=== PATIENT | female | born 1980 | race Hispanic/Latino ===

== ENCOUNTER 2020-02-21 21:52 | Inpatient (IN) | payer OTHER ==
[~2020-02-21] VITALS: Ht 162.6 cm; Wt 105.0 kg
[2020-02-21] MEDS ORDERED: CEFEPIME 2 GM/NS 0.9% 100 ML 100 ML IV ONE (22:45)
[2020-02-21] MEDS ORDERED: ACETAMINOPHEN 325 MG TAB ONE (22:45)
[2020-02-21] MEDS ORDERED: ACETAMINOPHEN 325 MG TAB PO ONE (22:45)
[2020-02-21 23:04] LABS: BASOPHILS % 0.2 % (0.0-1.0); EOSINOPHILS # (AUTO) 0.1 (0.0-0.4); HEMATOCRIT 46.7 % (34.2-44.1); HEMOGLOBIN 15.4 g/dL (12.0-16.0); LYMPHOCYTES # (AUTO) 0.9 (1.0-3.2); LYMPHOCYTES % 18.1 % (18.0-39.1); MEAN CORPUSCULAR HEMOGLOBIN 24.4 pg (28-32); MEAN CORPUSCULAR VOLUME 74.1 fL (81-99); MONOCYTES # (AUTO) 0.3 (0.2-0.8); MONOCYTES % 5.5 % (4.4-11.3); NEUTROPHILS # (AUTO) 3.7 (2.1-6.9); NEUTROPHILS % 73.6 % (38.7-80.0); PLATELET COUNT 141 x10e3/uL (140-360); RED CELL DISTRIBUTION WIDTH 13.8 % (11.7-14.4)
[2020-02-21 23:22] LABS: ALANINE AMINOTRANSFERASE 43 IU/L (0-55); ALBUMIN 3.9 g/dL (3.5-5.0); ALBUMIN/GLOBULIN RATIO 0.9 (0.8-2.0); ALKALINE PHOSPHATASE 154 IU/L (40-150); ANION GAP 17.9 mmol/L (8-16); BLOOD UREA NITROGEN 8 mg/dL (7-26); BUN/CREATININE RATIO 10 (6-25); CALCIUM 10.5 mg/dL (8.4-10.2); CARBON DIOXIDE 27 mmol/L (22-29); CHLORIDE 97 mmol/L (98-107); CREATINE KINASE 31 IU/L (29-168); EST GLOMERULAR FILTRATION RATE > 60 ML/MIN (60-); GLUCOSE 351 mg/dL (74-118); POTASSIUM 3.9 mmol/L (3.5-5.1); SODIUM 138 mmol/L (136-145)
--- NOTE | 2020-02-21 23:29 | Emergency Department Note ---
History of Present Illnes History of Present Illness Chief Complaint: COVID PUI History of Present Illness This is a 39 year old female FOR TWO DAYS PATIENT HAS BEEN SHORTNESS OF BREATH AND FATIGUE, DENIES CHEST PAIN. PATIENT WORKS AT A [employer] AND HIGH RISK FOR COVID. 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 Any updates have been documented here. Past Medical History Recent Fever: Yes Clinical Suspicion of Infectio: Yes New/Unexplained Change in Ment: Yes Past Medical History: Hypertension, Diabetes Other Medical History: AFIB Other Surgery: UTERINE CANCER GALLBLADDER REMOVAL Social History Smoking Cessation: Never Smoker Counseling Performed: No Alcohol Use: None Any Illegal Drug Use: No TB Exposure/Symptoms: No Physically hurt or threatened: No Other Last Tetanus: UNKNOWN Any Pre-Existing Lines (PICC,: No Is patient up to date on immun: Yes Last Flu: DENIES Last Pneumovax: UTD Review of Systems Review of Systems Constitutional: Reports as per HPI EENTM: Reports no symptoms Cardiovascular: Reports no symptoms Respiratory: Reports as per HPI Gastrointestinal: Reports no symptoms Genitourinary: Reports no symptoms Musculoskeletal: Reports no symptoms Integumentary: Reports no symptoms Neurological: Reports no symptoms Psychological: Reports no symptoms Endocrine: Reports no symptoms Hematological/Lymphatic: Reports no symptoms Physical Exam Related Data Allergies: Coded Allergies: No Known Allergies (Unverified , 02/21/20) Triage Vital Signs Vital Signs Date Time Temp Pulse Resp B/P (MAP) Pulse Ox O2 Delivery O2 Flow Rate FiO2 02/21/20 22:21 102.5 116 18 191/105 96 Vital signs reviewed: Yes Physical Exam CONSTITUTIONAL Constitutional: Present well-developed, Present well-nourished HENT HENT: Present normocephalic, Present atraumatic, Present oropharynx clear/moist, Present nose normal HENT L/R: Present left ext ear normal, Present right ext ear normal EYES Eyes: Reports PERRL, Reports conjunctivae normal NECK Neck: Present ROM normal PULMONARY Pulmonary: Present effort normal, Present breath sounds normal CARDIOVASCULAR Cardiovascular: Present regular rhythm, Present heart sounds normal, Present capillary refill normal, Present tachycardia (115) GASTROINTESTINAL Abdominal: Present soft, Present nontender, Present bowel sounds normal GENITOURINARY Genitourinary: Present exam deferred SKIN Skin: Present warm, Present dry MUSCULOSKELETAL Musculoskeletal: Present ROM normal NEUROLOGICAL Neurological: Present alert, Present oriented x 3, Present no gross motor or sensory deficits PSYCHOLOGICAL Psychological: Present mood/affect normal, Present judgement normal Results Laboratory Result Diagram: 02/21/202229 Laboratory Laboratory Tests Test 02/21/20 22:54 02/21/20 22:30 Urine Color Yellow (YELLOW) Urine Clarity Clear (CLEAR) Urine pH 7 (5 - 7) Urine Specific [place] 1.025 (1.010-1.025) Urine Protein Negative (NEGATIVE) Urine Glucose (UA) 2+ (NEGATIVE) Urine Ketones Negative (NEGATIVE) Urine Blood Trace (NEGATIVE) Urine Nitrite Negative (NEGATIVE) Urine Bilirubin Negative (NEGATIVE) Urine Urobilinogen 0.2 mg/dL (0.2 - 1) Urine Leukocyte Esterase Negative (NEGATIVE) Urine RBC 0-5 /HPF (0-5) Urine WBC 0-5 /HPF (0-5) Urine Epithelial Cells Few /LPF (NONE) Urine Bacteria Rare /HPF (NONE) White Blood Count 5.08 x10e3/uL (4.8-10.8) Red Blood Count 6.30 x10e6/uL (3.6-5.1) Hemoglobin 15.4 g/dL (12.0-16.0) Hematocrit 46.7 % (34.2-44.1) Mean Corpuscular Volume 74.1 fL (81-99) Mean Corpuscular Hemoglobin 24.4 pg (28-32) Mean Corpuscular Hemoglobin Concent 33.0 g/dL (31-35) Red Cell Distribution Width 13.8 % (11.7-14.4) Platelet Count 141 x10e3/uL (140-360) Neutrophils (%) (Auto) 73.6 % (38.7-80.0) Lymphocytes (%) (Auto) 18.1 % (18.0-39.1) Monocytes (%) (Auto) 5.5 % (4.4-11.3) Eosinophils (%) (Auto) 2.0 % (0.0-6.0) Basophils (%) (Auto) 0.2 % (0.0-1.0) Neutrophils # (Auto) 3.7 (2.1-6.9) Lymphocytes # (Auto) 0.9 (1.0-3.2) Monocytes # (Auto) 0.3 (0.2-0.8) Eosinophils # (Auto) 0.1 (0.0-0.4) Basophils # (Auto) 0.0 (0.0-0.1) Absolute Immature Granulocyte (auto 0.03 x10e3/uL (0-0.1) Sodium Level 138 mmol/L (136-145) Potassium Level 3.9 mmol/L (3.5-5.1) Chloride Level 97 mmol/L (98-107) Carbon Dioxide Level 27 mmol/L (22-29) Anion Gap 17.9 mmol/L (8-16) Blood Urea Nitrogen 8 mg/dL (7-26) Creatinine 0.80 mg/dL (0.57-1.11) Estimat Glomerular Filtration Rate > 60 ML/MIN (60-) BUN/Creatinine Ratio 10 (6-25) Glucose Level 351 mg/dL (74-118) Lactic Acid Level 1.2 mmol/L (0.5-2.0) Calcium Level 10.5 mg/dL (8.4-10.2) Total Bilirubin 0.6 mg/dL (0.2-1.2) Aspartate Amino Transf (AST/SGOT) 32 IU/L (5-34) Alanine Aminotransferase (ALT/SGPT) 43 IU/L (0-55) Alkaline Phosphatase 154 IU/L (40-150) Creatine Kinase 31 IU/L (29-168) Creatine Kinase MB 0.60 ng/mL (0-5.0) Troponin I < 0.001 ng/mL (0-0.300) Total Protein 8.3 g/dL (6.5-8.1) Albumin 3.9 g/dL (3.5-5.0) Globulin 4.4 g/dL (2.3-3.5) Albumin/Globulin Ratio 0.9 (0.8-2.0) Laboratory Tests Test 02/21/20 22:54 02/21/20 22:30 White Blood Count 5.08 x10e3/uL (4.8-10.8) Red Blood Count 6.30 x10e6/uL (3.6-5.1) Hemoglobin 15.4 g/dL (12.0-16.0) Hematocrit 46.7 % (34.2-44.1) Mean Corpuscular Volume 74.1 fL (81-99) Mean Corpuscular Hemoglobin 24.4 pg (28-32) Mean Corpuscular Hemoglobin Concent 33.0 g/dL (31-35) Red Cell Distribution Width 13.8 % (11.7-14.4) Platelet Count 141 x10e3/uL (140-360) Neutrophils (%) (Auto) 73.6 % (38.7-80.0) Lymphocytes (%) (Auto) 18.1 % (18.0-39.1) Monocytes (%) (Auto) 5.5 % (4.4-11.3) Eosinophils (%) (Auto) 2.0 % (0.0-6.0) Basophils (%) (Auto) 0.2 % (0.0-1.0) Neutrophils # (Auto) 3.7 (2.1-6.9) Lymphocytes # (Auto) 0.9 (1.0-3.2) Monocytes # (Auto) 0.3 (0.2-0.8) Eosinophils # (Auto) 0.1 (0.0-0.4) Basophils # (Auto) 0.0 (0.0-0.1) Absolute Immature Granulocyte (auto 0.03 x10e3/uL (0-0.1) Lactic Acid Level 1.2 mmol/L (0.5-2.0) Lab results reviewed: Yes Imaging Imaging results reviewed: Yes Impressions Procedure: [id number] DX/CHEST SINGLE (PORTABLE) Exam Date: 02/21/20 Exam Time: 2330 REPORT STATUS: Signed Examination: Single AP view of the chest. COMPARISON: None. INDICATION: Body aches, shortness of breath IMPRESSION: 1. Lines and Tubes: None 2. Lungs are well inflated. Linear opacity in the left mid lung likely represent subsegmental atelectasis. Lungs are otherwise grossly clear. No consolidation or effusion. 3. Cardiomediastinal silhouette is normal. Pulmonary vasculature is normal. 4. No acute bony abnormalities. Signed by: Dr. Michell Mendez M.D. on 02/21/2020 11:49 PM Dictated By: MICHELL MENDEZ MD [id number] Procedures 12 Lead ECG Interpretation ECG Interpretation : ECG: ECG 1 Manager Convention: Interpreted by ED physician Date: Feb 22, 2020 Time: 00:01 Rhythm: sinus tachycardia Rate: tachycardia BPM: 107 Conduction: left bundle branch block Clinical Impression: abnormal ECG Assessment & Plan Medical Decision Making MDM PT WITH FEVER, CHILLS, BODY ACHES, SOB. CBC, CMP, CXR, BLOOD CULTURE, UA, COVID 19 URINE CULTURE, LACTIC ACID ORDERED TO EVAL FOR SEPSIS, PNEUMONIA, UTI, COVID 19, ELECTROLYTE ABNORMALITY TYLENOL 650 MG PO ORDERED, CEFEPIME 2 GRAMS IV ORDERED, NS 1 LITER BOLUS IV ORDERED 2350 PT OXYGEN SAT DROPPED TO 88% ON ROOM AIR, PLACED ON 2 LITERS OXYGEN VIA NC AND SATURATION NOW 94 OT 95%. BASED ON LABS, AND PT'S EXAM, COVID EXPOSURE I BELIEVE PT HAS COVID 19, PT BEING ADMITTED TO COVID UNIT, I SPOKE WITH DR CROCKETT, DR PARIS AND LEFT A MESSAGE FOR DR CASEY Assessment & Plan Final Impression: (1) Fever (2) Viral pneumonia Depart Disposition: ADMITTED Last Vital Signs Date Time Temp Pulse Resp B/P (MAP) Pulse Ox O2 Delivery O2 Flow Rate FiO2 02/21/20 22:21 102.5 116 18 191/105 96 Medications in the ED Acetaminophen 650 mg ONCE ONCE PO ; Start 02/21/20 at 22:45; Stop 02/21/20 at 22:46; Status DC Acetaminophen 650 mg STK-MED ONCE .ROUTE ; Start 02/21/20 at 22:45; Stop 02/21/20 at 22:39; Status DC Cefepime HCl 100 ml @ 200 mls/hr ONCE ONCE IV ; Start 02/21/20 at 22:45; Stop 02/21/20 at 23:14; Status DC Sodium Chloride 1,000 ml @ 999 mls/hr Q1H1M IV ; Start 02/21/20 at 22:45; Stop 03/22/20 at 22:44 BONITA SMALLS MD Feb 21, 2020 23:29
[2020-02-21 23:38] LABS: BILIRUBIN,URINE NEGATIVE (NEGATIVE); CLARITY,URINE CLEAR (CLEAR); COLOR,URINE YELLOW (YELLOW); KETONES,URINE NEGATIVE (NEGATIVE); LEUKOCYTE ESTERASE ,URINE NEGATIVE (NEGATIVE); NITRITE,URINE NEGATIVE (NEGATIVE); PROTEIN,URINE DIPSTICK NEGATIVE (NEGATIVE); URINE UROBILINOGEN 0.2 mg/dL (0.2 - 1)
--- NOTE | 2020-02-21 23:52 | Diagnostic Imaging Report ---
Examination: Single AP view of the chest. COMPARISON: None. INDICATION: Body aches, shortness of breath IMPRESSION: 1. Lines and Tubes: None 2. Lungs are well inflated. Linear opacity in the left mid lung likely represent subsegmental atelectasis. Lungs are otherwise grossly clear. No consolidation or effusion. 3. Cardiomediastinal silhouette is normal. Pulmonary vasculature is normal. 4. No acute bony abnormalities. Signed by: Dr. Brian Mendez M.D. on 02/21/2020 11:49 PM
[2020-02-21] MEDS: SODIUM CHLORIDE 0.9% 1000ML 1,000 ML IV SCH (23:57)
[2020-02-22] VITALS (9 sets, daily range): BP systolic 146–174; BP diastolic 83–93
[2020-02-22 00:05] LABS: BACTERIA,URINE RARE /HPF; EPITHELIAL CELLS,URINE FEW /LPF; RBC,URINE 0-5 /HPF (0-5); WBC,URINE (MAN) 0-5 /HPF (0-5)
[2020-02-22] MEDS: SODIUM CHLORIDE 0.9% 1000ML 1,000 ML IV SCH ×8 (00:47→14:09)
[2020-02-22] MEDS ORDERED: SODIUM CHLORIDE FLUSH 10 ML SYR INJ PRN (01:15)
[2020-02-22] MEDS ORDERED: DEXTROSE 50% SYRINGE 50 ML IV PRN (01:15)
[2020-02-22] MEDS ORDERED: IBUPROFEN 600 MG TAB PO STA (02:28)
[2020-02-22] MEDS: ACETAMINOPHEN 325 MG TAB PO PRN ×4 (02:52→20:54)
[2020-02-22] MEDS: AZITHROMYCIN 500MG/NS 250 ML 250 ML IV SCH (02:52)
--- NOTE | 2020-02-22 02:57 | NUR ---
ER NOTIFIED AND AWARE OF BLOOD GLUCOSE, 287. NO NEW ORDERS AT THIS TIME.
[2020-02-22] MEDS: CEFEPIME 2 GM/NS 0.9% 100 ML 100 ML IV SCH ×3 (06:54→20:54)
[2020-02-22] MEDS: INSULIN REGULAR, HUMAN 100 UNIT/1 ML 3ML VIAL SQ SCH ×4 (07:30→20:54)
[2020-02-22] MEDS: ONDANSETRON HCL INJ 2MG/ML 2ML 2 MG/ML VIAL IV PRN (09:10)
[2020-02-22] MEDS ORDERED: NASONEX17 GM (09:58)
[2020-02-22] MEDS ORDERED: ULTRAM50 MG PO (09:58)
[2020-02-22] MEDS ORDERED: SINGULAIR10 MG PO (09:58)
[2020-02-22] MEDS ORDERED: METFORMIN HCL1000 MG PO (09:58)
[2020-02-22] MEDS ORDERED: LISINOPRIL-HCT1 EACH PO (09:58)
[2020-02-22] MEDS ORDERED: GABAPENTIN100 MG PO (09:58)
[2020-02-22] MEDS ORDERED: METOPROLOL TART25 MG PO (09:58)
[2020-02-22] MEDS ORDERED: VITAMIN D32400 UNIT/ PO (09:58)
[2020-02-22] MEDS ORDERED: VITAMIN D250 MCG PO (09:58)
[2020-02-22] MEDS ORDERED: DEXILANT30 MG PO (09:58)
[2020-02-22] MEDS ORDERED: NOVOLOG MI100 UNIT/1 SC (10:01)
[2020-02-22] MEDS ORDERED: ALBUTEROL SULFATE HFA 8GM INHALATION AEROSOL INH PRN (10:15)
[2020-02-22] MEDS: GABAPENTIN 100 MG CAP PO SCH (11:14)
[2020-02-22] MEDS: METOPROLOL TARTRATE 25 MG TAB PO SCH (11:14)
[2020-02-22] MEDS: LISINOPRIL 20 MG TAB PO SCH (11:14)
[2020-02-22] MEDS: HYDROCHLOROTHIAZIDE 25 MG TAB PO SCH (11:14)
[2020-02-22] MEDS: MONTELUKAST SODIUM 10 MG TAB PO SCH (11:15)
[2020-02-22] MEDS: TRAMADOL HCL 50 MG TAB PO PRN ×3 (11:15→23:06)
[2020-02-22] MEDS: METFORMIN HCL 500 MG TAB CR PO SCH (15:54)
--- NOTE | 2020-02-22 16:37 | Consultation ---
DATE OF CONSULTATION: Pulmonary Consultation The patient of Dr. Pardo and Dr. Roca. 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 History of hypertension, diabetes for at least 8 years, obesity, hypothyroidism. MEDICATIONS: Have included metformin, lisinopril, insulin, thyroid medication of unknown strength and height. According to record, she has also been on vitamin D, Dexilant, gabapentin, 70/30 insulin, lisinopril, hydrochlorothiazide, metformin, metoprolol, montelukast, and tramadol. SOCIAL HISTORY: She is a well-developed, born in [place]. FAMILY HISTORY: Noncontributory. History of remote uterine cancer. PHYSICAL EXAMINATION: VITAL SIGNS: Temperature max 102.3, blood pressure 164/93, and respirations 18. HEAD: Normocephalic and atraumatic. EYES: Extraocular movements intact. LUNGS: Diminished breath sounds. HEART: Regular rhythm. ABDOMEN: Nontender. EXTREMITIES: Nonedematous. IMPRESSION: COVID-19, diabetes, vague right lower lobe infiltrate consistent with pneumonia. PLAN: Continue support. Consider remdesivir. Antibiotics as per ID. Prophylactic Lovenox. Resume insulin, lisinopril, assess dose of thyroid medications, . The patient was warned that she might require mechanical ventilation should she decline and she is agreeable to . Thank you for this kind referral. Main Cortez MD DS/MODL /[id number]
[2020-02-22] MEDS ORDERED: INSULIN ASPART 70/30 100 UNITS/ML VIAL SC SCH (17:00)
[2020-02-22 17:02] LABS: CREATINE KINASE 19 IU/L (29-168)
[2020-02-22] MEDS: FLUTICASONE PROPIONATE NASAL SPRAY NS SCH (17:15)
[2020-02-22 17:43] LABS: FREE THYROXINE INDEX 3.6314 (1.4-3.8)
[2020-02-22] MEDS: INSULIN ASPART 70/30 100 UNITS/ML VIAL SC SCH (18:03)
[2020-02-22] MEDS: ENOXAPARIN SOD INJ 40 MG/0.4 ML SYR SC SCH (20:54)
[2020-02-22] MEDS ORDERED: INSULIN GLARGINE 100 UNITS/ML VIAL SQ SCH (21:00)
--- NOTE | 2020-02-22 22:38 | NUR ---
Patient resting quietly in bed, c/o headache. Will administer PRN Tramadol. No s/s of distress otherwise. Bed locked and in lowest position, call light placed within reach. All safety measures in place. Will continue to monitor.
[2020-02-22 23:44] LABS: CREATINE KINASE 20 IU/L (29-168)
[2020-02-23] VITALS (9 sets, daily range): BP systolic 131–168; BP diastolic 75–99
--- NOTE | 2020-02-23 00:09 | Consultation ---
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 The patient does have underlying history of diabetes mellitus, hypertension, obesity, comes in with the above. The patient was on metformin, lisinopril, insulin, thyroid medication. The patient comes in here, her COVID-19 came back positive. The patient is being admitted. She is not hypoxemic at present time. Her blood culture is pending. Her chest x-ray which was done showed there is no infiltrate. PHYSICAL EXAMINATION: GENERAL: Currently alert, oriented, does not seem in acute distress. VITALS: Stable, currently afebrile. HEENT: Not icteric. NECK: Supple. CHEST: Clear. HEART: S1 and S2. ABDOMEN: Soft. IMPRESSION: 1. Coronavirus disease 2019, present on admission. 2. Obesity. 3. Diabetes. 4. Maybe early pneumonia. PLAN: We will put her on Rocephin, azithromycin, Lovenox 0.5 mg/kg q.12, vitamin C, vitamin D, and zinc supplement and then reassess in the morning. MD JESSICA Valencia/SOLITARIO /[id number]
[2020-02-23] MEDS: ACETAMINOPHEN 325 MG TAB PO PRN ×3 (00:43→16:58)
[2020-02-23] MEDS: AZITHROMYCIN 500MG/NS 250 ML 250 ML IV SCH (01:26)
[2020-02-23] MEDS: CEFEPIME 2 GM/NS 0.9% 100 ML 100 ML IV SCH ×3 (05:05→21:24)
[2020-02-23 05:23] LABS: HEMOGLOBIN 13.8 g/dL (12.0-16.0); MEAN CORPUSCULAR HEMOGLOBIN 24.3 pg (28-32); MEAN CORPUSCULAR HGB CONC 32.1 g/dL (31-35); MEAN CORPUSCULAR VOLUME 75.7 fL (81-99); MONOCYTES # (AUTO) 0.6 (0.2-0.8); NEUTROPHILS # (AUTO) 3.6 (2.1-6.9); NEUTROPHILS % 69.8 % (38.7-80.0); PLATELET COUNT 130 x10e3/uL (140-360); RED BLOOD COUNT 5.68 x10e6/uL (3.6-5.1); RED CELL DISTRIBUTION WIDTH 13.6 % (11.7-14.4)
--- NOTE | 2020-02-23 06:27 | Diagnostic Imaging Report ---
Examination: Single AP view of the chest. COMPARISON: Portable chest 02/21/2020 INDICATION: Fever,COVID IMPRESSION: 1. Lines and Tubes: None 2. Slightly hypoinflated lungs. Stable left midlung subsegmental atelectasis. Patchy bibasilar opacities, right greater the left, likely representing atelectasis. No consolidation or effusion. 3. Cardiomediastinal silhouette is normal. Central pulmonary vascular crowding likely due to low lung volumes. 4. No acute bony abnormalities. Signed by: Dr. Brian Mendez M.D. on 02/23/2020 6:23 AM
[2020-02-23 08:00] LABS: ALANINE AMINOTRANSFERASE 47 IU/L (0-55); ALBUMIN 3.2 g/dL (3.5-5.0); ALBUMIN/GLOBULIN RATIO 0.9 (0.8-2.0); ALKALINE PHOSPHATASE 109 IU/L (40-150); ANION GAP 16.8 mmol/L (8-16); BLOOD UREA NITROGEN 10 mg/dL (7-26); BUN/CREATININE RATIO 14 (6-25); CALCIUM 9.6 mg/dL (8.4-10.2); CARBON DIOXIDE 23 mmol/L (22-29); CHLORIDE 97 mmol/L (98-107); CREATININE, SERUM 0.71 mg/dL (0.57-1.11); EST GLOMERULAR FILTRATION RATE > 60 ML/MIN (60-); GLUCOSE 249 mg/dL (74-118); POTASSIUM 3.8 mmol/L (3.5-5.1); SODIUM 133 mmol/L (136-145)
[2020-02-23] MEDS: INSULIN REGULAR, HUMAN 100 UNIT/1 ML 3ML VIAL SQ SCH ×4 (08:00→21:24)
[2020-02-23] MEDS: ENOXAPARIN SOD INJ 40 MG/0.4 ML SYR SC SCH ×2 (08:11→21:24)
[2020-02-23] MEDS: METOPROLOL TARTRATE 25 MG TAB PO SCH (08:11)
[2020-02-23] MEDS: PANTOPRAZOLE SOD 40 MG TABEC PO SCH (08:11)
[2020-02-23] MEDS: GABAPENTIN 100 MG CAP PO SCH (08:11)
[2020-02-23] MEDS: FLUTICASONE PROPIONATE NASAL SPRAY NS SCH ×2 (08:11→16:56)
[2020-02-23] MEDS: MONTELUKAST SODIUM 10 MG TAB PO SCH (08:12)
[2020-02-23] MEDS: LISINOPRIL 20 MG TAB PO SCH (08:12)
[2020-02-23] MEDS: HYDROCHLOROTHIAZIDE 25 MG TAB PO SCH (08:13)
[2020-02-23] MEDS: SODIUM CHLORIDE 0.9% 1000ML 1,000 ML IV SCH (08:23)
[2020-02-23] MEDS: METFORMIN HCL 500 MG TAB CR PO SCH ×2 (08:23→16:56)
[2020-02-23] MEDS ORDERED: MONTELUKAST SODIUM 10 MG TAB PO SCH (09:00)
[2020-02-23] MEDS ORDERED: CHOLECALCIFEROL 1,000 UNIT TAB PO SCH (09:00)
[2020-02-23] MEDS ORDERED: METOPROLOL TARTRATE 25 MG TAB PO SCH (09:00)
[2020-02-23] MEDS ORDERED: PANTOPRAZOLE SOD 40 MG TABEC PO SCH (09:00)
[2020-02-23] MEDS: INSULIN ASPART 70/30 100 UNITS/ML VIAL SC SCH ×2 (09:27→17:38)
--- NOTE | 2020-02-23 11:52 | Progress Note ---
DATE: SUBJECTIVE: Ms. Keith is doing about the same and feeling a bit sick. She had fever 102. She is on 2 L. She is extremely fatigued. LABORATORY DATA: Reviewed. White count is 5.2 and hemoglobin 5.68. Sodium 133, potassium 3.8, and creatinine 0.7. PHYSICAL EXAMINATION: GENERAL: She is currently alert, oriented, does not seem in acute distress. VITAL SIGNS: Stable, currently afebrile. HEENT: She is not icteric. NECK: Supple. CHEST: Clear. HEART: S1, S2. ABDOMEN: Soft. IMPRESSION: Ms. Keith with, 1. Coronavirus disease-19. 2. Obesity. 3. Hypoxemic. Continue with oxygen. Continue supportive care. Diabetic control. Rina Elizabeth MD ZS/MODL /[id number]
[2020-02-23] MEDS: ASCORBIC ACID 500 MG TAB PO SCH (12:21)
[2020-02-23] MEDS: CHOLECALCIFEROL 400 UNIT TAB PO SCH (12:21)
[2020-02-23] MEDS: ZINC SULFATE 220 MG CAP PO SCH (12:21)
[2020-02-23] MEDS: TRAMADOL HCL 50 MG TAB PO PRN (16:58)
[2020-02-24] VITALS (7 sets, daily range): BP systolic 109–152; BP diastolic 63–95
[2020-02-24] MEDS: AZITHROMYCIN 500MG/NS 250 ML 250 ML IV SCH (00:44)
[2020-02-24] MEDS: TRAMADOL HCL 50 MG TAB PO PRN ×3 (00:44→17:34)
[2020-02-24] MEDS: CEFEPIME 2 GM/NS 0.9% 100 ML 100 ML IV SCH ×3 (05:17→21:48)
[2020-02-24] MEDS: ACETAMINOPHEN 325 MG TAB PO PRN ×3 (05:18→21:48)
[2020-02-24 05:32] LABS: BASOPHILS % 0.5 % (0.0-1.0); EOSINOPHILS % 0.3 % (0.0-6.0); HEMATOCRIT 42.9 % (34.2-44.1); HEMOGLOBIN 13.8 g/dL (12.0-16.0); MEAN CORPUSCULAR HEMOGLOBIN 24.7 pg (28-32); MEAN CORPUSCULAR HGB CONC 32.2 g/dL (31-35); MEAN CORPUSCULAR VOLUME 76.7 fL (81-99); MONOCYTES # (AUTO) 0.4 (0.2-0.8); MONOCYTES % 9.9 % (4.4-11.3); NEUTROPHILS # (AUTO) 1.4 (2.1-6.9); PLATELET COUNT 125 x10e3/uL (140-360); RED BLOOD COUNT 5.59 x10e6/uL (3.6-5.1); RED CELL DISTRIBUTION WIDTH 13.3 % (11.7-14.4)
[2020-02-24 05:53] LABS: ANION GAP 11.3 mmol/L (8-16); BLOOD UREA NITROGEN 9 mg/dL (7-26); BUN/CREATININE RATIO 13 (6-25); CALCIUM 9.2 mg/dL (8.4-10.2); CARBON DIOXIDE 30 mmol/L (22-29); CHLORIDE 100 mmol/L (98-107); CREATININE, SERUM 0.68 mg/dL (0.57-1.11); EST GLOMERULAR FILTRATION RATE > 60 ML/MIN (60-); GLUCOSE 208 mg/dL (74-118); POTASSIUM 3.3 mmol/L (3.5-5.1); SODIUM 138 mmol/L (136-145)
--- NOTE | 2020-02-24 06:24 | NUR ---
Notified Dr. Pardo of patient's potassium level 3.3. Received orders to give 40 mEq potassium PO x1.
[2020-02-24] MEDS ORDERED: POTASSIUM CHLORIDE 20 MEQ TAB CR PO ONE (06:50)
[2020-02-24] MEDS: INSULIN REGULAR, HUMAN 100 UNIT/1 ML 3ML VIAL SQ SCH ×4 (07:30→20:44)
--- NOTE | 2020-02-24 07:50 | Diagnostic Imaging Report ---
Examination: Single AP view of the chest. COMPARISON: Portable chest 02/23/2020 INDICATION: COVID 19 IMPRESSION: 1. Lines and Tubes: None 2. Mildly hypoinflated lungs. No interval change in patchy bibasilar opacities, which may reflect atelectasis or pneumonia. No consolidation or effusion. 3. Cardiomediastinal silhouette is normal. Central pulmonary vascular crowding 4. No acute bony abnormalities. Signed by: Dr. Brian Mendez M.D. on 02/24/2020 7:46 AM
--- NOTE | 2020-02-24 08:00 | NUR ---
PATIENT IS AWAKE, ALERT, AND IN STABLE CONDITION WITH NO S/S OF RESPIRATORY DISTRESS. PATIENT C/O GENERALIZED WEAKNESS AND PAIN 02/07. 02 APPLIED AT 2L NC. TELEMETRY APPLIED. IV FLUIDS INFUSING. BEDSIDE COMMODE AVAILABLE FOR PATIENT NEAR BEDSIDE. CALL LIGHT IS WITHIN REACH, PATIENT INSTRUCTED TO CALL FOR ASSISTANCE NEEDED.
[2020-02-24] MEDS: INSULIN ASPART 70/30 100 UNITS/ML VIAL SC SCH ×2 (09:17→17:00)
[2020-02-24] MEDS: MONTELUKAST SODIUM 10 MG TAB PO SCH (09:18)
[2020-02-24] MEDS: GLIMEPIRIDE 2 MG TAB PO SCH (09:18)
[2020-02-24] MEDS: METFORMIN HCL 500 MG TAB CR PO SCH ×2 (09:18→17:00)
[2020-02-24] MEDS: PANTOPRAZOLE SOD 40 MG TABEC PO SCH (09:18)
[2020-02-24] MEDS: FLUTICASONE PROPIONATE NASAL SPRAY NS SCH ×2 (09:19→17:00)
[2020-02-24] MEDS: GABAPENTIN 100 MG CAP PO SCH (09:19)
[2020-02-24] MEDS: METOPROLOL TARTRATE 25 MG TAB PO SCH (09:19)
[2020-02-24] MEDS: LISINOPRIL 20 MG TAB PO SCH (09:19)
[2020-02-24] MEDS: HYDROCHLOROTHIAZIDE 25 MG TAB PO SCH (09:19)
[2020-02-24] MEDS: ASCORBIC ACID 500 MG TAB PO SCH (09:20)
[2020-02-24] MEDS: ZINC SULFATE 220 MG CAP PO SCH (09:20)
[2020-02-24] MEDS: CHOLECALCIFEROL 400 UNIT TAB PO SCH (09:20)
[2020-02-24] MEDS: ENOXAPARIN SOD INJ 40 MG/0.4 ML SYR SC SCH ×2 (09:20→21:48)
[2020-02-24] MEDS: SODIUM CHLORIDE 0.9% 1000ML 1,000 ML IV SCH (10:36)
[2020-02-24] MEDS: ONDANSETRON HCL INJ 2MG/ML 2ML 2 MG/ML VIAL IV PRN (10:36)
[2020-02-24 10:43] LABS: PLATELET ESTIMATE SLIGHTLY DECREASED; PLATELET MORPHOLOGY COMMENT NORMAL; RBC MORPHOLOGY COMMENT NORMAL
--- NOTE | 2020-02-24 15:50 | Progress Note ---
DATE: SUBJECTIVE: Ms. Keith is feeling about the same on 2 L. REVIEW OF SYSTEMS: Just cough and short of breath, on 2 L. PHYSICAL EXAMINATION: GENERAL: She is currently alert, oriented. VITAL SIGNS: Stable, currently afebrile. NECK: Supple. CHEST: Clear. ABDOMEN: Soft. IMPRESSION: The patient is stable on 2 L, can probably discharge home tomorrow with oxygen 2 L with vitamin C and D and zinc supplement. Follow up in a couple weeks. To stay in home currently for 2 weeks. MD JESSICA Valencia/SOLITARIO /[id number]
--- NOTE | 2020-02-24 19:21 | NUR ---
PATIENT IS IN STABLE CONDITION WITH NO S/S OF RESPIRATORY DISTRESS. O2 APPLIED. TELEMETRY APPLIED. BEDSIDE COMMODE AVAILABLE FOR PATIENT NEAR BEDSIDE. CALL LIGHT IS WITHIN REACH, PATIENT INSTRUCTED TO CALL FOR ASSISTANCE NEEDED. SHIFT REPORT GIVEN TO ONCOMING NURSE.
[2020-02-25] VITALS (8 sets, daily range): BP systolic 126–149; BP diastolic 79–98
[2020-02-25] MEDS: AZITHROMYCIN 500MG/NS 250 ML 250 ML IV SCH (01:35)
[2020-02-25] MEDS: ACETAMINOPHEN 325 MG TAB PO PRN ×2 (05:20→20:41)
[2020-02-25] MEDS: CEFEPIME 2 GM/NS 0.9% 100 ML 100 ML IV SCH ×3 (05:22→20:57)
[2020-02-25] MEDS: INSULIN REGULAR, HUMAN 100 UNIT/1 ML 3ML VIAL SQ SCH ×4 (07:30→20:40)
[2020-02-25] MEDS: INSULIN ASPART 70/30 100 UNITS/ML VIAL SC SCH ×2 (08:00→17:00)
[2020-02-25] MEDS: METOPROLOL TARTRATE 25 MG TAB PO SCH (09:00)
[2020-02-25] MEDS: GLIMEPIRIDE 2 MG TAB PO SCH (10:19)
[2020-02-25] MEDS: FLUTICASONE PROPIONATE NASAL SPRAY NS SCH ×2 (10:20→17:13)
[2020-02-25] MEDS: HYDROCHLOROTHIAZIDE 25 MG TAB PO SCH (10:20)
[2020-02-25] MEDS: METFORMIN HCL 500 MG TAB CR PO SCH ×2 (10:20→17:13)
[2020-02-25] MEDS: GABAPENTIN 100 MG CAP PO SCH (10:28)
[2020-02-25] MEDS: ASCORBIC ACID 500 MG TAB PO SCH (10:29)
[2020-02-25] MEDS: MONTELUKAST SODIUM 10 MG TAB PO SCH (10:29)
[2020-02-25] MEDS: ZINC SULFATE 220 MG CAP PO SCH (10:29)
[2020-02-25] MEDS: LISINOPRIL 20 MG TAB PO SCH (10:29)
[2020-02-25] MEDS: CHOLECALCIFEROL 400 UNIT TAB PO SCH (10:29)
[2020-02-25] MEDS: ENOXAPARIN SOD INJ 40 MG/0.4 ML SYR SC SCH ×2 (10:29→21:33)
[2020-02-25] MEDS: PANTOPRAZOLE SOD 40 MG TABEC PO SCH (10:40)
[2020-02-25] MEDS ORDERED: POTASSIUM CHLORIDE 20 MEQ TAB CR PO PRN (10:45)
[2020-02-25] MEDS: SODIUM CHLORIDE 0.9% 1000ML 1,000 ML IV SCH (12:28)
[2020-02-25] MEDS: TRAMADOL HCL 50 MG TAB PO PRN (17:26)
[2020-02-26] VITALS (8 sets, daily range): BP systolic 120–164; BP diastolic 68–92
[2020-02-26] MEDS: TRAMADOL HCL 50 MG TAB PO PRN ×2 (00:19→21:46)
[2020-02-26] MEDS: AZITHROMYCIN 500MG/NS 250 ML 250 ML IV SCH (00:31)
[2020-02-26] MEDS: SODIUM CHLORIDE 0.9% 1000ML 1,000 ML IV SCH ×2 (00:57→08:52)
[2020-02-26] MEDS: ACETAMINOPHEN 325 MG TAB PO PRN ×3 (05:20→20:08)
[2020-02-26] MEDS: CEFEPIME 2 GM/NS 0.9% 100 ML 100 ML IV SCH ×3 (05:23→21:46)
[2020-02-26 05:39] LABS: HEMATOCRIT 43.5 % (34.2-44.1); LYMPHOCYTES # (AUTO) 1.2 (1.0-3.2); MEAN CORPUSCULAR HEMOGLOBIN 24.2 pg (28-32); MEAN CORPUSCULAR HGB CONC 32.2 g/dL (31-35); MEAN CORPUSCULAR VOLUME 75.3 fL (81-99); MONOCYTES # (AUTO) 0.3 (0.2-0.8); MONOCYTES % 10.4 % (4.4-11.3); NEUTROPHILS % 40.2 % (38.7-80.0); PLATELET COUNT 115 x10e3/uL (140-360); RED BLOOD COUNT 5.78 x10e6/uL (3.6-5.1); RED CELL DISTRIBUTION WIDTH 13.4 % (11.7-14.4)
[2020-02-26 06:39] LABS: ALANINE AMINOTRANSFERASE 100 IU/L (0-55); ALBUMIN 2.8 g/dL (3.5-5.0); ALBUMIN/GLOBULIN RATIO 0.8 (0.8-2.0); ALKALINE PHOSPHATASE 82 IU/L (40-150); ANION GAP 12.2 mmol/L (8-16); BLOOD UREA NITROGEN 10 mg/dL (7-26); BUN/CREATININE RATIO 14 (6-25); CALCIUM 8.7 mg/dL (8.4-10.2); CARBON DIOXIDE 29 mmol/L (22-29); CHLORIDE 100 mmol/L (98-107); EST GLOMERULAR FILTRATION RATE > 60 ML/MIN (60-); GLUCOSE 132 mg/dL (74-118); POTASSIUM 3.2 mmol/L (3.5-5.1); SODIUM 138 mmol/L (136-145)
[2020-02-26] MEDS: INSULIN REGULAR, HUMAN 100 UNIT/1 ML 3ML VIAL SQ SCH ×4 (07:30→20:23)
[2020-02-26] MEDS: HYDROCHLOROTHIAZIDE 25 MG TAB PO SCH (08:30)
[2020-02-26] MEDS: METFORMIN HCL 500 MG TAB CR PO SCH ×2 (08:30→16:58)
[2020-02-26] MEDS: PANTOPRAZOLE SOD 40 MG TABEC PO SCH (08:30)
[2020-02-26] MEDS: GLIMEPIRIDE 2 MG TAB PO SCH (08:30)
[2020-02-26] MEDS: INSULIN ASPART 70/30 100 UNITS/ML VIAL SC SCH ×2 (08:30→17:22)
[2020-02-26] MEDS: METOPROLOL TARTRATE 25 MG TAB PO SCH (08:30)
[2020-02-26] MEDS: FLUTICASONE PROPIONATE NASAL SPRAY NS SCH ×2 (09:37→16:27)
[2020-02-26] MEDS: GABAPENTIN 100 MG CAP PO SCH (09:37)
[2020-02-26] MEDS: CHOLECALCIFEROL 400 UNIT TAB PO SCH (09:37)
[2020-02-26] MEDS: ENOXAPARIN SOD INJ 40 MG/0.4 ML SYR SC SCH ×2 (09:37→21:46)
[2020-02-26] MEDS: LISINOPRIL 20 MG TAB PO SCH (09:37)
[2020-02-26] MEDS: ASCORBIC ACID 500 MG TAB PO SCH (09:37)
[2020-02-26] MEDS: MONTELUKAST SODIUM 10 MG TAB PO SCH (09:37)
[2020-02-26] MEDS: ZINC SULFATE 220 MG CAP PO SCH (09:37)
--- NOTE | 2020-02-26 13:30 | Diagnostic Imaging Report ---
EXAMINATION: CHEST SINGLE (PORTABLE) INDICATION: F/U, FEVER COMPARISON: Chest radiograph 02/24/2020. FINDINGS: TUBES and LINES: None. LUNGS: Lungs are mildly hypoinflated. Mild patchy bibasilar opacities are unchanged. PLEURA: No pleural effusion or pneumothorax. HEART AND MEDIASTINUM: The cardiomediastinal silhouette is unremarkable. BONES AND SOFT TISSUES: No acute osseous lesion. Soft tissues are unremarkable. UPPER ABDOMEN: No free air under the diaphragm. IMPRESSION: Mildly hypoinflated lungs with patchy bibasilar opacities, which may reflect atelectasis or pneumonia. Signed by: Dr. Lilo Bernal MD on 02/26/2020 1:27 PM
--- NOTE | 2020-02-26 14:27 | NUR ---
PT CALLED AND STATES SHE FELT SOB AND HAD RECTAL PAIN. 02 SAT 93% RA PT PLACED ON 2L NC 98%, HR 98, TEMP 101.1 PT MEDICATED FOR FEVER AND PAIN, STATES SHE HAS BEEN HAVING DIARRHEA IN THE PAST AND RECTUM FELT SORE TYLENOL GIVEN.
[2020-02-27] VITALS: BP 129/77
[2020-02-27] MEDS: ACETAMINOPHEN 325 MG TAB PO PRN ×3 (00:23→14:55)
[2020-02-27] MEDS: SODIUM CHLORIDE 0.9% 1000ML 1,000 ML IV SCH (00:23)
[2020-02-27] MEDS: AZITHROMYCIN 500MG/NS 250 ML 250 ML IV SCH (00:29)
--- NOTE | 2020-02-27 01:25 | NUR ---
Patient c/o pain to left ac iv site, iv removed with tip intact. Pressure dressing applied. New iv started to left FA 22g x1 attempt.
[2020-02-27 04:00] VITALS: BP 156/85
[2020-02-27] MEDS: CEFEPIME 2 GM/NS 0.9% 100 ML 100 ML IV SCH ×2 (05:25→14:52)
[2020-02-27 05:39] LABS: HEMATOCRIT 40.7 % (34.2-44.1); HEMOGLOBIN 13.1 g/dL (12.0-16.0); LYMPHOCYTES # (AUTO) 1.4 (1.0-3.2); LYMPHOCYTES % 54.5 % (18.0-39.1); MEAN CORPUSCULAR HEMOGLOBIN 24.3 pg (28-32); MEAN CORPUSCULAR HGB CONC 32.2 g/dL (31-35); MEAN CORPUSCULAR VOLUME 75.4 fL (81-99); MONOCYTES # (AUTO) 0.2 (0.2-0.8); MONOCYTES % 7.2 % (4.4-11.3); NEUTROPHILS % 37.9 % (38.7-80.0); PLATELET COUNT 96 x10e3/uL (140-360); RED CELL DISTRIBUTION WIDTH 13.3 % (11.7-14.4)
[2020-02-27 05:59] LABS: ALANINE AMINOTRANSFERASE 123 IU/L (0-55); ALBUMIN 2.6 g/dL (3.5-5.0); ALBUMIN/GLOBULIN RATIO 0.7 (0.8-2.0); ALKALINE PHOSPHATASE 81 IU/L (40-150); ANION GAP 10.8 mmol/L (8-16); BLOOD UREA NITROGEN 7 mg/dL (7-26); BUN/CREATININE RATIO 11 (6-25); CALCIUM 8.4 mg/dL (8.4-10.2); CARBON DIOXIDE 29 mmol/L (22-29); CHLORIDE 101 mmol/L (98-107); CREATININE, SERUM 0.65 mg/dL (0.57-1.11); EST GLOMERULAR FILTRATION RATE > 60 ML/MIN (60-); GLUCOSE 160 mg/dL (74-118); MAGNESIUM 1.4 MG/DL (1.3-2.1); POTASSIUM 3.8 mmol/L (3.5-5.1); SODIUM 137 mmol/L (136-145)
[2020-02-27] MEDS: INSULIN REGULAR, HUMAN 100 UNIT/1 ML 3ML VIAL SQ SCH ×2 (07:30→11:30)
[2020-02-27 08:00] VITALS: BP 156/85
[2020-02-27] MEDS: INSULIN ASPART 70/30 100 UNITS/ML VIAL SC SCH (08:00)
[2020-02-27 08:30] VITALS: BP 134/77
[2020-02-27] MEDS: METFORMIN HCL 500 MG TAB CR PO SCH (08:58)
[2020-02-27] MEDS: GLIMEPIRIDE 2 MG TAB PO SCH (08:58)
[2020-02-27] MEDS: PANTOPRAZOLE SOD 40 MG TABEC PO SCH (08:58)
[2020-02-27] MEDS: HYDROCHLOROTHIAZIDE 25 MG TAB PO SCH (08:59)
[2020-02-27] MEDS: FLUTICASONE PROPIONATE NASAL SPRAY NS SCH (08:59)
[2020-02-27] MEDS: MONTELUKAST SODIUM 10 MG TAB PO SCH (09:00)
[2020-02-27] MEDS: GABAPENTIN 100 MG CAP PO SCH (09:00)
[2020-02-27] MEDS: METOPROLOL TARTRATE 25 MG TAB PO SCH (09:00)
[2020-02-27] MEDS: LISINOPRIL 20 MG TAB PO SCH (09:00)
[2020-02-27] MEDS: ASCORBIC ACID 500 MG TAB PO SCH (09:00)
[2020-02-27] MEDS: TRAMADOL HCL 50 MG TAB PO PRN (09:01)
[2020-02-27] MEDS: ZINC SULFATE 220 MG CAP PO SCH (09:01)
[2020-02-27] MEDS: ENOXAPARIN SOD INJ 40 MG/0.4 ML SYR SC SCH (09:01)
[2020-02-27] MEDS: CHOLECALCIFEROL 400 UNIT TAB PO SCH (09:01)
[2020-02-27 09:18] LABS: RBC MORPHOLOGY COMMENT NORMAL
[2020-02-27 09:19] LABS: PLATELET ESTIMATE SLIGHTLY DECREASED; PLATELET MORPHOLOGY COMMENT NORMAL
[2020-02-27 12:13] VITALS: BP 126/80
--- NOTE | 2020-02-27 13:05 | Diagnostic Imaging Report ---
EXAMINATION: CHEST SINGLE (PORTABLE) INDICATION: Fever, pneumonia COMPARISON: None FINDINGS: LINES/TUBES:EKG leads overlie the chest. LUNGS:The lung volumes are low. Bibasilar patchy opacities right greater than left. PLEURA:No pleural effusion or pneumothorax. MEDIASTINUM:The cardiomediastinal silhouette appears normal in size and shape. BONES/SOFT TISSUES:No acute osseous injury. ABDOMEN:No free air under the diaphragm. IMPRESSION: Right greater than left bibasilar patchy opacities may represent subsegmental atelectasis however superimposed pneumonitis could also have this appearance in the proper clinical setting. Signed by: Harrison Trejo MD on 02/27/2020 1:02 PM
--- NOTE | 2020-02-27 13:30 | NUR ---
Home O2 evaluation done and patient does not meet criteria for home evaluation. Pt O2 sat 94% on room air with exertion.
--- NOTE | 2020-02-27 13:43 | Progress Note ---
DATE: SUBJECTIVE: Ms. Keith is doing well. No new complaints. Still weak. REVIEW OF SYSTEMS: HEENT: Negative. PULMONARY: Negative. CARDIAC: Negative. PHYSICAL EXAMINATION: GENERAL: She is currently alert and oriented. Does not seem to be in acute distress. VITAL SIGNS: Stable, afebrile. HEENT: She is not icteric. NECK: Supple. CHEST: Clear. HEART: S1 and S2. No S3, S4, or murmur. ABDOMEN: Soft. IMPRESSION: COVID-19. The plan is to discharge home today. Follow up as an outpatient in 2 weeks, home quarantine for 2 weeks, bedrest, push p.o. fluid. MD JESSICA Valencia/SOLITARIO /[id number]
--- NOTE | 2020-02-27 14:28 | NUR ---
Spoke with Dr. Pardo and received orders to discharge patient home.
[2020-02-27 16:23] VITALS: BP 129/72
--- NOTE | 2020-02-27 16:30 | NUR ---
Pt discharged home at this time. Pt verbalized understanding of all discharge instructions and follow up appointments. 0 s/s of acute distress noted at time of discharge. Breaths are even and unlabored at time of discharge.
--- NOTE | 2020-02-28 05:21 | Discharge Summary ---
DISCHARGE DIAGNOSIS: COVID pneumonia. HISTORY OF PRESENT ILLNESS AND HOSPITAL COURSE: See hospital chart for full details. The patient is a lady, who presented with fever, shortness of breath. X-ray showed evidence of viral pneumonia. COVID test was positive. She was brought into the COVID unit. She was seen by both Pulmonary and Infectious Disease. She was evaluated for home oxygen, which she did not need. At the time of discharge, she was doing much better. Fever was improving. She was cleared by Infectious Disease and Pulmonary and discharged home, will follow up in 1 to 2 weeks with Infectious Disease. The patient was also given instructions on quarantine until cleared by Infectious Disease. Please see hospital chart for details. MD ODETTE Forman/SOLITARIO /[id number]
== END 2020-02-27 17:07 | disposition home or self-care (01) | DRG 177 ==
LOC: ER 21:52 → ERHOLD 02-22 01:16 → IMCU 02-22 02:40
PROVIDERS: ADMIT Internal Medicine; ATTEND Internal Medicine
DX: U07.1 COVID-19 (principal); J12.9 Viral pneumonia, unspecified; J96.01 Acute respiratory failure with hypoxia; E11.9 Type 2 diabetes mellitus without complications; E66.9 Obesity, unspecified; Z68.39 Body mass index [BMI] 39.0-39.9, adult; I10 Essential (primary) hypertension; E66.01 Morbid (severe) obesity due to excess calories
CPT/HCPCS: 36415; 71045; 80048; 80053; 81001; 82550; 82553; 82948; 83036; 83605; 83735; 84436; 84443; 84479; 84484; 85025; 87040; 87070; 87205; 87635; 93005; 96372; 99251; 99285; J0456; J1650; J1815; J1817; J2405; J7030

== ENCOUNTER 2020-03-16 23:38 | Emergency (ER) | payer OTHER ==
[~2020-03-16] VITALS: Ht 162.6 cm; Wt 104.8 kg
[~2020-03-16 23:38] MED LIST: DEXILANT30 MG PO; GABAPENTIN100 MG PO; LISINOPRIL-HCT1 EACH PO; METFORMIN HCL1000 MG PO; METOPROLOL TART25 MG PO; NASONEX17 GM; NOVOLOG MI100 UNIT/1 SC; SINGULAIR10 MG PO; ULTRAM50 MG PO; VITAMIN D250 MCG PO; VITAMIN D32400 UNIT/ PO
[2020-03-17] MEDS ORDERED: SODIUM CHLORIDE 0.9% 1000ML 1,000 ML IV ONE ×2 (00:45→03:30)
[2020-03-17] MEDS ORDERED: INSULIN REGULAR, HUMAN 100 UNIT/1 ML 3ML VIAL SQ ONE ×2 (00:45→03:30)
[2020-03-17 00:52] LABS: BASOPHILS % 0.4 % (0.0-1.0); EOSINOPHILS # (AUTO) 0.2 (0.0-0.4); EOSINOPHILS % 2.2 % (0.0-6.0); HEMATOCRIT 41.4 % (34.2-44.1); HEMOGLOBIN 13.8 g/dL (12.0-16.0); LYMPHOCYTES # (AUTO) 2.6 (1.0-3.2); LYMPHOCYTES % 38.7 % (18.0-39.1); MEAN CORPUSCULAR HEMOGLOBIN 24.9 pg (28-32); MEAN CORPUSCULAR HGB CONC 33.3 g/dL (31-35); MEAN CORPUSCULAR VOLUME 74.7 fL (81-99); MONOCYTES # (AUTO) 0.6 (0.2-0.8); MONOCYTES % 8.2 % (4.4-11.3); NEUTROPHILS # (AUTO) 3.4 (2.1-6.9); NEUTROPHILS % 50.4 % (38.7-80.0); PLATELET COUNT 151 x10e3/uL (140-360); RED BLOOD COUNT 5.54 x10e6/uL (3.6-5.1); RED CELL DISTRIBUTION WIDTH 13.1 % (11.7-14.4)
--- NOTE | 2020-03-17 00:54 | Emergency Department Note ---
History of Present Illnes History of Present Illness Chief Complaint: COVID PUI History of Present Illness This is a 40 year old female PRESENTS TO THE ER C/O ELEVATED GLUCOSE LEVELS; REPORTS GLUCOSE AT HOME WAS 400; PT STATES SHE ATE MASHED POTATOES AND MACERONI AND CHEESE AND RAN OUT OF INSULIN TODAY; BG IN TRIAGE 405; NAD NOTED AT THIS TIME;. Historian: Patient Arrival Mode: Car Onset (how long ago): hour(s) (9) Location: none Quality: elevated blood sugar Radiation: Reports non-radiation Severity: moderate Onset quality: gradual Duration (how long): hour(s) (9) Timing of current episode: constant Progression: unchanged Chronicity: recurrent Context: Denies recent illness, Denies recent surgery Relieving factors: none Exacerbating factors: none Associated symptoms: Reports denies other symptoms Treatments prior to arrival: none Past Medical/Family History Physician Review I have reviewed the patient's past medical and family history. Any updates have been documented here. Past Medical History Recent Fever: No Clinical Suspicion of Infectio: No New/Unexplained Change in Ment: No Past Medical History: Hypertension, Diabetes Other Medical History: AFIB Other Surgery: UTERINE CANCER GALLBLADDER REMOVAL Social History Smoking Cessation: Never Smoker Alcohol Use: None Any Illegal Drug Use: No Family History Family history of heart diseas: No Other family history htn,dm Other Last Tetanus: UNKNOWN Review of Systems Review of Systems Constitutional: Reports no symptoms EENTM: Reports no symptoms Cardiovascular: Reports no symptoms Respiratory: Reports no symptoms Gastrointestinal: Reports no symptoms Genitourinary: Reports no symptoms Musculoskeletal: Reports no symptoms Integumentary: Reports no symptoms Neurological: Reports no symptoms Psychological: Reports no symptoms Endocrine: Reports no symptoms Hematological/Lymphatic: Reports no symptoms Physical Exam Related Data Allergies: Coded Allergies: No Known Allergies (Unverified , 02/21/20) Triage Vital Signs Vital Signs Date Time Temp Pulse Resp B/P (MAP) Pulse Ox O2 Delivery O2 Flow Rate FiO2 03/17/20 00:28 98.2 112 20 171/108 98 Room Air Vital signs reviewed: Yes Physical Exam CONSTITUTIONAL Constitutional: Present well-developed, Present well-nourished HENT HENT: Present normocephalic, Present atraumatic, Present oropharynx clear/moist, Present nose normal HENT L/R: Present left ext ear normal, Present right ext ear normal EYES Eyes: Reports PERRL, Reports conjunctivae normal NECK Neck: Present ROM normal PULMONARY Pulmonary: Present effort normal, Present breath sounds normal CARDIOVASCULAR Cardiovascular: Present regular rhythm, Present heart sounds normal, Present capillary refill normal, Present tachycardia (112) GASTROINTESTINAL Abdominal: Present soft, Present nontender, Present bowel sounds normal GENITOURINARY Genitourinary: Present exam deferred SKIN Skin: Present warm, Present dry MUSCULOSKELETAL Musculoskeletal: Present ROM normal NEUROLOGICAL Neurological: Present alert, Present oriented x 3, Present no gross motor or sensory deficits PSYCHOLOGICAL Psychological: Present mood/affect normal, Present judgement normal Assessment & Plan Medical Decision Making MDM pt with elevated blood sugar, fsbs 405 on arrival, pt ran out of her HUMALOG 70/30 1 DAY AGO CBC, CMP, UA ORDERED TO EVAL FOR DKA, DEHYDRATION, ELECTROLYTE ABNORMALITY, UTI REGULAR INSULIN 12 UNITS SQ ORDERED 1 LITER NS IV BOLUS ORDERED PT DISCHARGED WITH PRESCRIPTION TO REFILL HUMOLOG 70/30, 26 UNITS SQ BID. Reassessment Reassessment time: 05:16 Reassessment FSBS NOW 295 Assessment & Plan Final Impression: (1) Hyperglycemia due to diabetes mellitus Depart Disposition: HOME, SELF-CARE Last Vital Signs Date Time Temp Pulse Resp B/P (MAP) Pulse Ox O2 Delivery O2 Flow Rate FiO2 03/17/20 00:28 98.2 112 20 171/108 98 Room Air Home Meds Reported Medications Insuln Asp Prt/Insulin Aspart (NOVOLOG MIX 70-30 FLEXPEN SYRN) 100 Unit/1 Ml Insuln.pen, 26 UNIT SC BIDWM, SYR 02/22/20 Mometasone Furoate (NASONEX) 17 Gm Paul, 1 SPRAY NA BID, SPRAY THERAPEUTICALLY SUBSTITUTED WITH FLONASE (FLUTICASONE) 02/22/20 Ergocalciferol (Vitamin D2) (Vitamin D2) 50 Mcg Capsule, 50 MCG PO DAILY 02/22/20 Cholecalciferol (Vitamin D3) (VITAMIN D3) 2,400 Unit/1 Ml Liquid, 22155 PO DAILY 02/22/20 Tramadol Hcl (ULTRAM) 50 Mg Tablet, 50 MG PO Q6H PRN for pain, TAB 02/22/20 Gabapentin (GABAPENTIN) 100 Mg Capsule, 100 MG PO DAILY 02/22/20 Dexlansoprazole (DEXILANT) 30 Mg , 30 MG PO DAILY THERAPEUTIC INTERCHANGED WITH PROTONIX PER [facility] 02/22/20 Montelukast Sodium (SINGULAIR) 10 Mg Tablet, 10 MG PO DAILY, #30 TAB 02/22/20 Metoprolol Tartrate (METOPROLOL TARTRATE) 25 Mg Tablet, 25 MG PO DAILY, TAB 02/22/20 Lisinopril/Hydrochlorothiazide (LISINOPRIL-HCTZ 20-12.5 MG TAB) 1 Each Tablet, PO DAILY 02/22/20 Metformin Hcl (METFORMIN HCL) 1,000 Mg Tablet, PO BID 02/22/20 Medications in the ED Insulin Human Regular 12 unit ONCE ONCE SQ ; Start 03/17/20 at 00:45; Stop 03/17/20 at 00:46; Status UNV Sodium Chloride 1,000 ml @ 999 mls/hr Q1H1M ONCE IV ; Start 03/17/20 at 00:45; Stop 03/17/20 at 01:45 BONITA SMALLS MD Mar 17, 2020 00:54
[2020-03-17 01:09] LABS: ALBUMIN 3.4 g/dL (3.5-5.0); ALBUMIN/GLOBULIN RATIO 0.8 (0.8-2.0); ANION GAP 14.1 mmol/L (8-16); CALCIUM 9.9 mg/dL (8.4-10.2); CREATININE, SERUM 1.02 mg/dL (0.57-1.11); POTASSIUM 4.1 mmol/L (3.5-5.1)
[2020-03-17 01:57] LABS: BILIRUBIN,URINE NEGATIVE (NEGATIVE); CLARITY,URINE CLEAR (CLEAR); COLOR,URINE YELLOW (YELLOW); KETONES,URINE NEGATIVE (NEGATIVE); LEUKOCYTE ESTERASE ,URINE NEGATIVE (NEGATIVE); NITRITE,URINE NEGATIVE (NEGATIVE); PROTEIN,URINE DIPSTICK 2+ (NEGATIVE); URINE UROBILINOGEN 0.2 mg/dL (0.2 - 1)
[2020-03-17 02:02] LABS: BACTERIA,URINE RARE /HPF; EPITHELIAL CELLS,URINE MODERATE /LPF; RBC,URINE 0-5 /HPF (0-5); WBC,URINE (MAN) 0-5 /HPF (0-5)
[2020-03-17] MEDS ORDERED: SODIUM CHLORIDE 0.9% 1000ML 1,000 ML ONE (03:27)
== END 2020-03-17 05:15 | disposition home or self-care (01) ==
LOC: ER 03-17 00:25
DX: E11.65 Type 2 diabetes mellitus with hyperglycemia (principal); I10 Essential (primary) hypertension; I48.91 Unspecified atrial fibrillation; Z85.42 Personal history of malignant neoplasm of other parts of uterus
CPT/HCPCS: 36415; 80053; 81001; 82948; 85025; 99284; J7030

== ENCOUNTER 2020-08-27 07:38 | Emergency (ER) | payer SELFPAY ==
[~2020-08-27] VITALS: Ht 162.6 cm; Wt 104.8 kg
[2020-08-27] MEDS ORDERED: ONDANSETRON HCL INJ 2MG/ML 2ML 2 MG/ML VIAL IV STA (07:53)
[2020-08-27] MEDS ORDERED: KETOROLAC TROMETHAMINE 30 MG/ML VIAL IV STA (07:55)
[2020-08-27] MEDS ORDERED: ACETAMINOPHEN 325 MG TAB PO ONE (08:00)
[2020-08-27] MEDS ORDERED: SODIUM CHLORIDE 0.9% 1000ML 1,000 ML IV SCH (08:00)
[2020-08-27] MEDS ORDERED: SODIUM CHLORIDE 0.9% 1000ML 1,000 ML ONE (08:03)
[2020-08-27 08:12] LABS: BASOPHILS % 0.3 % (0.0-1.0); EOSINOPHILS # (AUTO) 0.2 (0.0-0.4); EOSINOPHILS % 2.1 % (0.0-6.0); HEMATOCRIT 46.3 % (34.2-44.1); HEMOGLOBIN 15.5 g/dL (12.0-16.0); LYMPHOCYTES % 31.8 % (18.0-39.1); MEAN CORPUSCULAR HEMOGLOBIN 23.9 pg (28-32); MEAN CORPUSCULAR HGB CONC 33.5 g/dL (31-35); MEAN CORPUSCULAR VOLUME 71.5 fL (81-99); MONOCYTES # (AUTO) 0.6 (0.2-0.8); MONOCYTES % 6.6 % (4.4-11.3); NEUTROPHILS # (AUTO) 5.6 (2.1-6.9); NEUTROPHILS % 58.9 % (38.7-80.0); PLATELET COUNT 210 x10e3/uL (140-360); RED BLOOD COUNT 6.48 x10e6/uL (3.6-5.1)
[2020-08-27 08:23] LABS: CLARITY,URINE HAZY (CLEAR); COLOR,URINE YELLOW (YELLOW); KETONES,URINE NEGATIVE (NEGATIVE); LEUKOCYTE ESTERASE ,URINE NEGATIVE (NEGATIVE); NITRITE,URINE NEGATIVE (NEGATIVE); PROTEIN,URINE DIPSTICK 1+ (NEGATIVE); URINE UROBILINOGEN 0.2 mg/dL (0.2 - 1)
[2020-08-27 08:30] LABS: ALANINE AMINOTRANSFERASE 22 IU/L (0-55); ALBUMIN 3.8 g/dL (3.5-5.0); ALBUMIN/GLOBULIN RATIO 0.9 (0.8-2.0); ALKALINE PHOSPHATASE 127 IU/L (40-150); ANION GAP 18.4 mmol/L (8-16); BLOOD UREA NITROGEN 15 mg/dL (7-26); BUN/CREATININE RATIO 19 (6-25); CALCIUM 10.2 mg/dL (8.4-10.2); CARBON DIOXIDE 24 mmol/L (22-29); CHLORIDE 98 mmol/L (98-107); CREATININE, SERUM 0.78 mg/dL (0.57-1.11); EST GLOMERULAR FILTRATION RATE > 60 ML/MIN (60-); GLUCOSE 297 mg/dL (74-118); POTASSIUM 3.4 mmol/L (3.5-5.1); SODIUM 137 mmol/L (136-145)
[2020-08-27 08:44] LABS: BACTERIA,URINE FEW /HPF; EPITHELIAL CELLS,URINE MODERATE /LPF; YEAST,URINE FEW
[2020-08-27 08:46] LABS: RBC,URINE 0-5 /HPF (0-5)
[2020-08-27 08:55] LABS: LIPASE 13 U/L (8-78)
[2020-08-27] MEDS ORDERED: ZOFRAN4 MG PO (09:38)
[2020-08-27] MEDS ORDERED: LEVALBUTEROL HCL SOLN NEBU 0.63 MG/3 ML NEB INH SCH (13:00)
== END 2020-08-27 09:50 | disposition home or self-care (01) ==
LOC: ER 08:10
DX: B34.9 Viral infection, unspecified (principal); I10 Essential (primary) hypertension; E11.9 Type 2 diabetes mellitus without complications; I48.91 Unspecified atrial fibrillation; E03.9 Hypothyroidism, unspecified
CPT/HCPCS: 36415; 71045; 80053; 81001; 83690; 83880; 84484; 84702; 85025; 87400; 93005; 99284; J1885; J2405; J7030